=== PATIENT | male | born 2000 | race Caucasian/White ===

== ENCOUNTER 2022-03-16 14:05 | Emergency (ER) | payer OTHER ==
[~2022-03-16 14:05] MED LIST: CYCLOBENZAPRINE10 MG PO; IBUPROFEN800 MG PO; OMEPRAZOLE40 MG PO; ONDANSETRON ODT4 MG PO/SL
[2022-03-16 14:29] LABS: BASOPHIL 0.4 % (0-2); EOSINOPHIL 0.6 % (0-5); HCT 50.4 % (42.0-52.0); HGB 17.2 g/dl (13.2-18.0); LYMPHOCYTE 13.6 % (15-48); MCH 32.4 pg (25.0-31.0); MCHC 34.1 g/dL (32.0-36.0); MCV 94.9 fL (78.0-100.0); MONOCYTE 4.8 % (0-12); MPV 9.4 fL (6.0-9.5); NEUTROPHIL 80.3 % (41-80); NRBC 0; PLT 307 K/uL (150-400); RBC 5.31 M/uL (4.70-6.00); RDW 12.4 % (11.5-14.0)
[2022-03-16 14:53] LABS: BILIRUBIN - TOTAL 0.5 mg/dL (0.2-1.0); BUN/CREAT RATIO (CALC) 7.9 RATIO; CREATININE 1.14 mg/dL (0.67-1.17); GLOBULIN (CALCULATION) 4.2 g/dL; MAGNESIUM 1.9 mg/dL (1.8-2.4); TOTAL PROTEIN 9.2 g/dL (6.4-8.2)
[2022-03-16 15:04] LABS: LACTIC ACID 2.9 mmol/L (0.4-1.9)
[2022-03-16 16:46] LABS: BILIRUBIN NEGATIVE (NEGATIVE); BLOOD NEGATIVE Ery/uL (NEGATIVE); CLARITY CLEAR (CLEAR); COLOR YELLOW (YELLOW); GLUCOSE (U) NORMAL (NORMAL); LEUKOCYTES NEGATIVE Leu/uL (NEGATIVE); NITRITE NEGATIVE (NEGATIVE); PROTEIN NEGATIVE (NEGATIVE); SPECIFIC GRAVITY 1.025 (1.001-1.030); UROBILINOGEN 0.2 mg/dL (0.2-1.0); pH 7.5 (5.0-9.0)
[2022-03-16 16:48] LABS: AMPHETAMINES NEGATIVE (NEGATIVE); BARBITURATES NEGATIVE (NEGATIVE); ECSTASY (MDMA) NEGATIVE (NEGATIVE); MARIJUANA (THC) POSITIVE (NEGATIVE); METHADONE NEGATIVE (NEGATIVE); OPIATES NEGATIVE (NEGATIVE); OXYCODONE NEGATIVE (NEGATIVE)
[2022-03-16] MEDS ORDERED: ONDANSETRON ODT4 MG PO (18:18)
[2022-03-16] MEDS ORDERED: PROTONIX 40MG T40 MG PO (18:18)
[2022-03-16] MEDS ORDERED: BENTYL10 MG PO (18:18)
[2022-03-16] MEDS ORDERED: NAPROXEN500 MG PO (18:18)
== END 2022-03-16 18:40 | disposition home or self-care (01) ==
LOC: FER 14:05
PROVIDERS: Emergency Medicine
DX: R11.10 Vomiting, unspecified (principal)
CPT/HCPCS: 36415; 80053; 80305; 81003; 83605; 83690; 83735; 84484; 85025; 93005; 96372; J1630; J1885; J2405; J7030

== ENCOUNTER 2022-04-15 07:55 | Emergency (ER) | payer OTHER ==
[~2022-04-15 07:55] MED LIST changes: +BENTYL10 MG PO; +NAPROXEN500 MG PO; +ONDANSETRON ODT4 MG PO; +PROTONIX 40MG T40 MG PO
[2022-04-15 08:10] LABS: BASOPHIL 0.4 % (0-2); EOSINOPHIL 0.3 % (0-5); HCT 44.7 % (42.0-52.0); HGB 15.5 g/dl (13.2-18.0); LYMPHOCYTE 9.3 % (15-48); MCH 32.3 pg (25.0-31.0); MCHC 34.7 g/dL (32.0-36.0); MCV 93.1 fL (78.0-100.0); MONOCYTE 4.4 % (0-12); MPV 9.4 fL (6.0-9.5); NEUTROPHIL 85.3 % (41-80); NRBC 0; PLT 264 K/uL (150-400); RDW 12.5 % (11.5-14.0); WBC 12.8 K/uL (4.0-10.5)
[2022-04-15 08:32] LABS: ALBUMIN 4.5 g/dL (3.4-5.0); BILIRUBIN - TOTAL 0.5 mg/dL (0.2-1.0); BUN/CREAT RATIO (CALC) 10.1 RATIO; CREATININE 1.19 mg/dL (0.67-1.17); GLOBULIN (CALCULATION) 3.6 g/dL; POTASSIUM 3.8 mmol/L (3.5-5.1); TOTAL PROTEIN 8.1 g/dL (6.4-8.2)
[2022-04-15 09:48] LABS: BILIRUBIN NEGATIVE (NEGATIVE); BLOOD NEGATIVE Ery/uL (NEGATIVE); CLARITY CLEAR (CLEAR); COLOR YELLOW (YELLOW); GLUCOSE (U) NORMAL (NORMAL); LEUKOCYTES NEGATIVE Leu/uL (NEGATIVE); NITRITE NEGATIVE (NEGATIVE); PROTEIN TRACE (LOW) mg/dL (NEGATIVE); SPECIFIC GRAVITY >=1.030 (1.001-1.030); pH 6.5 (5.0-9.0)
[2022-04-15 09:52] LABS: AMPHETAMINES NEGATIVE (NEGATIVE); BARBITURATES NEGATIVE (NEGATIVE); ECSTASY (MDMA) NEGATIVE (NEGATIVE); MARIJUANA (THC) POSITIVE (NEGATIVE); METHADONE NEGATIVE (NEGATIVE); OPIATES NEGATIVE (NEGATIVE); OXYCODONE NEGATIVE (NEGATIVE)
[2022-04-15] MEDS ORDERED: BENTYL10 MG PO (12:11)
[2022-04-15] MEDS ORDERED: PHENERGAN25 M1 PO (12:11)
== END 2022-04-15 12:27 | disposition home or self-care (01) ==
LOC: FER 07:55
PROVIDERS: Emergency Medicine
DX: R11.15 Cyclical vomiting syndrome unrelated to migraine (principal)
CPT/HCPCS: 36415; 80053; 80305; 81003; 83690; 85025; 93005; J1630; J2270; J2405; J2550; J7030

== ENCOUNTER 2022-04-23 01:14 | Emergency (ER) | payer OTHER ==
[~2022-04-23 01:14] MED LIST changes: +PHENERGAN25 M1 PO
[2022-04-23 02:18] LABS: CORONAVIRUS 2019 SARS-COV-2 NEGATIVE (NEGATIVE); INFLUENZA A NAA NEGATIVE (NEGATIVE)
[2022-04-23 02:54] LABS: BASOPHIL 0.3 % (0-2); EOSINOPHIL 0.3 % (0-5); HCT 47.2 % (42.0-52.0); HGB 16.1 g/dl (13.2-18.0); LYMPHOCYTE 10.9 % (15-48); MCH 32.2 pg (25.0-31.0); MCHC 34.1 g/dL (32.0-36.0); MCV 94.4 fL (78.0-100.0); MPV 9.6 fL (6.0-9.5); NEUTROPHIL 84.2 % (41-80); NRBC 0; PLT 284 K/uL (150-400); RDW 12.6 % (11.5-14.0); WBC 14.4 K/uL (4.0-10.5)
[2022-04-23 03:00] LABS: ALBUMIN 4.6 g/dL (3.4-5.0); BILIRUBIN - TOTAL 0.6 mg/dL (0.2-1.0); CREATININE 1.1 mg/dL (0.67-1.17); GLOBULIN (CALCULATION) 3.7 g/dL; POTASSIUM 3.9 mmol/L (3.5-5.1); TOTAL PROTEIN 8.3 g/dL (6.4-8.2)
[2022-04-23] MEDS ORDERED: ONDANSETRON ODT4 MG PO (03:06)
== END 2022-04-23 03:45 | disposition home or self-care (01) ==
LOC: FER 01:14
PROVIDERS: Emergency Medicine
DX: R11.2 Nausea with vomiting, unspecified (principal); Z20.822 Contact with and (suspected) exposure to COVID-19
CPT/HCPCS: 36415; 80053; 85025; J1885; J2405; J7030; Q0169; U0002

== ENCOUNTER 2022-06-10 19:22 | Emergency (ER) | payer OTHER ==
[2022-06-11 01:10] LABS: BASOPHIL 0.5 % (0-2); EOSINOPHIL 0.7 % (0-5); HCT 43.8 % (42.0-52.0); HGB 15.2 g/dl (13.2-18.0); LYMPHOCYTE 26.7 % (15-48); MCH 32.1 pg (25.0-31.0); MCHC 34.7 g/dL (32.0-36.0); MCV 92.6 fL (78.0-100.0); MONOCYTE 12.3 % (0-12); MPV 9.2 fL (6.0-9.5); NEUTROPHIL 59.7 % (41-80); NRBC 0; PLT 255 K/uL (150-400); RBC 4.73 M/uL (4.70-6.00); RDW 12.3 % (11.5-14.0); WBC 7.5 K/uL (4.0-10.5)
[2022-06-11 01:32] LABS: ALBUMIN 4.7 g/dL (3.4-5.0); BILIRUBIN - TOTAL 1.1 mg/dL (0.2-1.0); BUN/CREAT RATIO (CALC) 9.8 RATIO; CREATININE 1.02 mg/dL (0.67-1.17); GLOBULIN (CALCULATION) 3.5 g/dL; POTASSIUM 3.7 mmol/L (3.5-5.1); TOTAL PROTEIN 8.2 g/dL (6.4-8.2)
[2022-06-11 01:44] LABS: CORONAVIRUS 2019 SARS-COV-2 NEGATIVE (NEGATIVE); INFLUENZA A NAA NEGATIVE (NEGATIVE)
[2022-06-11] MEDS ORDERED: PANTOPRAZOLE SO40 MG PO (05:58)
[2022-06-11] MEDS ORDERED: NORCO 5-325 TA1 EACH PO (05:58)
[2022-06-11] MEDS ORDERED: ONDANSETRON ODT4 MG PO (05:58)
[2022-06-11] MEDS ORDERED: PHENERGAN25 M1 PO (05:58)
[2022-06-11] MEDS ORDERED: PEPCID AC20 MG PO (05:58)
[2022-06-11] MEDS ORDERED: PHENERGAN6.25 MG/5 PO (05:58)
== END 2022-06-11 06:07 | disposition home or self-care (01) ==
LOC: FER 19:22
PROVIDERS: Emergency Medicine
DX: K85.90 Acute pancreatitis without necrosis or infection, unspecified (principal); Z20.822 Contact with and (suspected) exposure to COVID-19
CPT/HCPCS: 36415; 80053; 83690; 85025; 93005; J1885; J2405; J7030; Q9967; U0002